=== PATIENT | female | born 1970 | race Caucasian/White ===

== ENCOUNTER 2021-04-08 10:52 | Emergency (ER) | payer OTHER ==
[~2021-04-08] VITALS: Ht 160 cm; Wt 72.6 kg
[2021-04-08 10:59] VITALS: BP 158/99
--- NOTE | 2021-04-08 11:06 | NUR ---
Patient ambulated to bed 11. RN evaluating the patient at bedside.
--- NOTE | 2021-04-08 11:43 | NUR ---
50/F presents to ED with c/o back and neck pain. Patient states since Tuesday she has been having intermittent 7/10 head pain radiating to back and causing "left arm numbness." Patient states "my doctor recently changed my medication dosages and I dont know if thats what is causing it." Patient denies taking anything at home for pain, patient denies visual changes, alert and oriented x4, answering questions appropriately in full clear sentences. Bilateral flavor tank tender and sensation equal in extremities.
[2021-04-08] MEDS ORDERED: KETOROLAC 60 MG/2 ML VIAL IM ONE (11:45)
[2021-04-08] MEDS ORDERED: ACET-10509 PO ×2 (12:07→13:23)
[2021-04-08] MEDS ORDERED: CYCL-711 PO ×2 (12:07→13:23)
[2021-04-08 13:23] VITALS: BP 158/99
--- NOTE | 2021-04-08 13:24 | NUR ---
Patient discharged with v/s stable. Written and verbal after care instructions given and explained. Patient alert, oriented and verbalized understanding of instructions. Ambulatory with steady gait. All questions addressed prior to discharge. ID band removed. Patient advised to follow up with PMD. Rx of Tylenol Extra Strength and Flexeril given. Patient educated on indication of medication including possible reaction and side effects. Opportunity to ask questions provided and answered.
== END 2021-04-08 13:23 | disposition home or self-care (01) ==
LOC: MED 10:52
DX: M54.6 Pain in thoracic spine (principal); E11.9 Type 2 diabetes mellitus without complications; I10 Essential (primary) hypertension; Z79.899 Other long term (current) drug therapy
CPT/HCPCS: 93005; 96372; 99283; J1885

== ENCOUNTER 2021-11-18 18:59 | Emergency (ER) | payer OTHER ==
[~2021-11-18] VITALS: Ht 157.5 cm; Wt 77.1 kg
[~2021-11-18 18:59] MED LIST: ACET-10509 PO; CYCL-711 PO
--- NOTE | 2021-11-18 20:30 | NUR ---
called no show
--- NOTE | 2021-11-18 21:56 | NUR ---
Called second time no show.
--- NOTE | 2021-11-18 21:57 | NUR ---
Man reynoso in [facility] - 11/18/21 at 2226 by [email or web address] Patient LWBS.
[2021-11-18 22:18] VITALS: BP 142/83
--- NOTE | 2021-11-18 22:28 | NUR ---
Dr. Jean at triage to exam patient.
--- NOTE | 2021-11-18 22:30 | NUR ---
Place patient on Chair A.
[2021-11-18] MEDS ORDERED: METF-1243 PO (22:37)
[2021-11-18] MEDS ORDERED: LEVO0.155 PO (22:49)
[2021-11-18] MEDS ORDERED: LISI2.5T12 PO (22:49)
--- NOTE | 2021-11-18 22:56 | NUR ---
Dr. Jean at Chair A to re-eam patient with charm filter operator helper.
--- NOTE | 2021-11-18 23:20 | NUR ---
Med rec reviewed.
--- NOTE | 2021-11-18 23:31 | NUR ---
Blood for labwork drawn from right arm per setter induction heating equipment. Patient tolerated well.
[2021-11-18 23:36] LABS: BASOPHILS % (AUTO) 0.4 % (0.0-2.0); EOSINOPHILS # (AUTO) 0.2 K/uL (0-0.4); HEMOGLOBIN 11.7 g/dL (12.0-16.0); LYMPHOCYTES # (AUTO) 1.6 K/uL (2.5-16.5); LYMPHOCYTES % (AUTO) 33.2 % (20.5-51.1); MEAN CORPUSCULAR HEMOGLOBIN 31 pg (27-31); MEAN CORPUSCULAR HGB CONC 35 g/dL (33-37); MEAN CORPUSCULAR VOLUME 89.8 fL (80-94); MONOCYTES # (AUTO) 0.3 K/uL (0.8-1.0); MONOCYTES % (AUTO) 7.2 % (1.7-9.3); NEUTROPHILS # (AUTO) 2.6 K/uL (1.8-7.7); NEUTROPHILS % (AUTO) 55.2 % (42.2-75.2); PLATELET COUNT (AUTO) 280 K/uL (140-450); RED BLOOD CELL COUNT(AUTO) 3.78 MIL/uL (4.20-5.40); RED CELL DISTRIBUTION WIDTH 13.6 % (11.6-13.7); WHITE BLOOD COUNT (AUTO) 4.8 K/uL (4.8-10.8)
[2021-11-18] MEDS ORDERED: HYDR-1093 PO (23:51)
[2021-11-19] LABS: ALBUMIN 3.5 g/dL (3.4-5.0); ANION GAP 10.2 (8-16); CARBON DIOXIDE 27.9 mmol/L (21-32); CREATININE 0.4 mg/dL (0.6-1.3); POTASSIUM 4.1 mmol/L (3.5-5.1); THYROID STIMULATING HORMONE 0.57 uIU/mL (0.34-3.74); TOTAL BILIRUBIN 0.4 mg/dL (0.0-1.0)
[2021-11-19 00:31] VITALS: BP 142/83
--- NOTE | 2021-11-19 00:31 | NUR ---
Patient discharged with v/s stable. Written and verbal after care instructions given and explained. Patient alert, oriented and verbalized understanding of instructions. Ambulatory with steady gait. All questions addressed prior to discharge. ID band removed. Patient advised to follow up with PMD. Rx of Hydroxyzine given. Patient educated on indication of medication including possible reaction and side effects. Opportunity to ask questions provided and answered.
== END 2021-11-19 00:31 | disposition home or self-care (01) ==
LOC: MED 18:59
DX: R20.2 Paresthesia of skin (principal); M79.602 Pain in left arm; M54.2 Cervicalgia; E11.9 Type 2 diabetes mellitus without complications; J45.909 Unspecified asthma, uncomplicated; Z79.899 Other long term (current) drug therapy
CPT/HCPCS: 36415; 80053; 82948; 84443; 85025; 99283